=== PATIENT | female | born 1970 | race Caucasian/White ===

== ENCOUNTER 2017-02-17 06:25 | Inpatient (IN) | payer SELFPAY ==
[2017-02-12 11:10] VITALS: BMI 22.2
[~2017-02-17 06:25] MED LIST: BUPIVACAINE HCL/PF 0.25% (2.5MG/ML) 10 ML VIAL IJ ONE
[2017-02-17] MEDS ORDERED: LIDOCAINE HCL 1%, 10 MG/ML (20ML VIAL) ONE ×4 (07:20→10:24)
[2017-02-17] MEDS ORDERED: ePHEDrine SULFATE 50 MG/1 ML AMPULE ONE (07:20)
[2017-02-17] MEDS ORDERED: EPINEPHrine 1:1,000 1 MG/1 ML - 30ML VIAL (INJECTION) ONE (07:20)
[2017-02-17] MEDS ORDERED: SUCCINYLCHOLINE CHLORIDE 200 MG/10 ML VIAL ONE (07:21)
[2017-02-17] MEDS ORDERED: ROCURONIUM BROMIDE 50 MG/5 ML VIAL ONE ×3 (07:21→12:30)
[2017-02-17] MEDS ORDERED: MIDAZOLAM HCL 2 MG/2 ML SINGLE DOSE VIAL ONE ×2 (07:21)
[2017-02-17] MEDS ORDERED: PROPOFOL 20 ML ONE ×2 (07:21)
[2017-02-17] MEDS ORDERED: DESFLURANE GAS 240 ML BOTTLE IH ONE (07:28)
[2017-02-17] MEDS ORDERED: ACETAMINOPHEN INJECTION 100 ML IVPB ONE (07:28)
[2017-02-17] MEDS ORDERED: SCOPOLAMINE HYDROBROMIDE 1 PATCH PATCH.TD72 ONE (07:28)
[2017-02-17] MEDS ORDERED: BUPIVACAINE HCL 0.25% 125 MG/50 ML VIAL ONE (07:34)
[2017-02-17] MEDS ORDERED: LIDOCAINE 1%/EPI 1:100000 (20 ML MULTI DOSE VIAL) ONE (07:34)
[2017-02-17] MEDS ORDERED: PROMETHAZINE HCL 25 MG/1 ML VIAL IVPUSH PRN (08:22)
[2017-02-17] MEDS ORDERED: ONDANSETRON 4 MG/2 ML VIAL IVPUSH PRN (08:22)
[2017-02-17] MEDS ORDERED: LACTATED RINGERS SOLUTION 1,000 ML IV SCH ×2 (08:30→19:15)
[2017-02-17] MEDS ORDERED: HEPARIN NA (PORCINE) 5,000 UNITS/ML 1ML VIAL ONE (09:03)
[2017-02-17] MEDS ORDERED: HEPARIN NA (PORCINE) 5,000 UNITS/ML 1ML VIAL SQ ONE (09:07)
[2017-02-17] MEDS ORDERED: ceFAZolin SODIUM 1 GM VIAL ONE (13:37)
[2017-02-17] MEDS ORDERED: HYDROmorphone HCL/PF 1 MG/ML VIAL (FOR PYXIS CHARGING ONLY) ONE ×3 (15:11)
[2017-02-17] MEDS ORDERED: LIDOCAINE 1%/EPI 1:100000 (20 ML MULTI DOSE VIAL) INF ONE (17:58)
[2017-02-17] MEDS ORDERED: BUPIVACAINE HCL/PF 0.25% (2.5MG/ML) 10 ML VIAL IJ ONE ×2 (18:07)
[2017-02-17] MEDS ORDERED: ZOLPIDEM TARTRATE 5 MG TABLET PO PRN (19:12)
[2017-02-17] MEDS ORDERED: oxyCODONE HCL 5 MG TABLET PO PRN ×2 (19:22→19:23)
[2017-02-17] MEDS: CEFAZOLIN 1 GM/D5W 50 ML IVPB SCH (21:49)
[2017-02-17] MEDS ORDERED: ENOXAPARIN NA (PORCINE) 40 MG/0.4 ML DISP.SYRIN SQ ONE (22:00)
[2017-02-17] MEDS: ONDANSETRON 4 MG/2 ML VIAL IVPB PRN (22:49)
[2017-02-17] MEDS: HYDROmorphone HCL CARPU-JECT 1 MG/1 ML DISP.SYRIN IVPB PRN (22:56)
[2017-02-18] MEDS: CEFAZOLIN 1 GM/D5W 50 ML IVPB SCH ×3 (03:18→15:05)
[2017-02-18] MEDS: DOCUSATE SODIUM 100 MG CAPSULE (FP) PO SCH ×3 (03:18→21:25)
[2017-02-18] MEDS: HYDROmorphone HCL CARPU-JECT 1 MG/1 ML DISP.SYRIN IVPB PRN ×4 (03:47→21:16)
[2017-02-18] MEDS: DOXYCYCLINE HYCLATE 100 MG CAPSULE PO SCH ×2 (09:44→18:28)
--- NOTE | 2017-02-18 12:07 | PN ---
Progress Note (short form) - Note Progress Note: ANESTHESIOLOGY POST-OP CHECK 46F s/p liposuction and bilateral mastopexy under general anesthesia, POD #1. No acute complaints. Pain 6/10 with pain meds and tolerable. Denies N/V, tolerating PO. Vital Signs Temperature 98.0 F 02/18/17 06:00 Pulse Rate 77 02/18/17 06:00 Respiratory Rate 18 02/18/17 06:00 Blood Pressure 90/46 02/18/17 06:00 O2 Sat by Pulse Oximetry (%) 97 02/18/17 11:32 Active Medications Acetaminophen (Tylenol -) 650 mg PO Q4H PRN PRN Reason: FEVER Diphenhydramine HCl (Benadryl Injection -) 25 mg IVPB Q4H PRN PRN Reason: FOR ITCHING Docusate Sodium (Colace -) 100 mg PO BID [facility] Last Admin: 02/18/17 09:46 Dose: 100 mg Doxycycline Hyclate (Vibramycin -) 100 mg PO BID@1000,1800 [facility] Last Admin: 02/18/17 09:44 Dose: 100 mg Hydromorphone HCl (Dilaudid Injection -) 1 mg IVPB Q4H PRN PRN Reason: PAIN Last Admin: 02/18/17 08:34 Dose: 1 mg Cefazolin Sodium (Ancef 1 Gm Premixed Ivpb -) 50 mls @ 100 mls/hr IVPB Q6H-IV ECHO Stop: 02/18/17 15:29 Last Admin: 02/18/17 09:46 Dose: 100 mls/hr Lactated Ringer's (Lactated Ringers Solution) 1,000 mls @ 100 mls/hr IV ASDIR [facility] Ondansetron HCl (Zofran Injection) 4 mg IVPB Q4H PRN PRN Reason: NAUSEA AND/OR VOMITING Last Admin: 02/17/17 22:49 Dose: 4 mg Oxycodone HCl (Roxicodone -) 5 mg PO Q4H PRN PRN Reason: MODERATE PAIN Oxycodone HCl (Roxicodone -) 10 mg PO Q4H PRN PRN Reason: SEVERE PAIN Zolpidem Tartrate (Ambien -) 5 mg PO HS PRN PRN Reason: INSOMNIA Gen: Awake, alert No apparent anesthesia complications, pain controlled. Continue management as per primary team.
[2017-02-18] MEDS: ACETAMINOPHEN 325 MG TABLET (FP) PO PRN (16:48)
[2017-02-18] MEDS ORDERED: ENOXAPARIN NA (PORCINE) 40 MG/0.4 ML DISP.SYRIN SQ ONE (22:00)
[2017-02-19] MEDS: CEFAZOLIN (PRE-DOCKED) 50 ML IVPB SCH ×3 (00:06→15:02)
[2017-02-19] MEDS: HYDROmorphone HCL CARPU-JECT 1 MG/1 ML DISP.SYRIN IVPB PRN ×3 (03:38→18:51)
[2017-02-19] MEDS: ACETAMINOPHEN 325 MG TABLET (FP) PO PRN ×2 (09:00→17:00)
[2017-02-19] MEDS: DOXYCYCLINE HYCLATE 100 MG CAPSULE PO SCH ×2 (09:55→18:52)
[2017-02-19] MEDS: DOCUSATE SODIUM 100 MG CAPSULE (FP) PO SCH ×2 (09:56→21:21)
[2017-02-19] MEDS: ONDANSETRON 4 MG/2 ML VIAL IVPB PRN (18:52)
[2017-02-19] MEDS ORDERED: ONDANSETRON 4 MG TABLET PO PRN (23:29)
[2017-02-19] MEDS ORDERED: ENOXAPARIN NA (PORCINE) 40 MG/0.4 ML DISP.SYRIN SQ ONE (23:30)
[2017-02-19] MEDS ORDERED: HYDROmorphone HCL 2 MG TABLET PO PRN (23:31)
[2017-02-20] MEDS: CEPHALEXIN MONOHYDRATE 500 MG CAPSULE (UD) PO SCH ×2 (00:03→06:20)
[2017-02-20] MEDS: ACETAMINOPHEN 325 MG TABLET (FP) PO PRN (02:24)
[2017-02-20] MEDS: DOXYCYCLINE HYCLATE 100 MG CAPSULE PO SCH (09:21)
[2017-02-20] MEDS: DOCUSATE SODIUM 100 MG CAPSULE (FP) PO SCH (09:21)
[2017-02-20] MEDS ORDERED: PROCHLORPERAZINE MALEATE 5 MG TABLET PO PRN (09:43)
[2017-02-20 14:57] VITALS: BP 108/60; PULSE 93; TEMP 98.5
--- NOTE | 2017-02-20 16:26 | PATH ---
Surgical Pathology Report Patient Name: RUMA BORJAS Med. Rec. #: [id number] /Age/Gender: 1970 (Age: 46) / F Account: [id number] Location: [facility] Taken: 02/17/2017 Received: 02/17/2017 Reported: 02/20/2017 Physicians: Becki Muñoz M.D. Specimen(s) Received A: LEFT BREAST SKIN AND TISSUE B: RIGHT BREAST SKIN AND TISSUE Clinical History Cosmetic Final Diagnosis A. SKIN AND SOFT TISSUE, LEFT BREAST, EXCISION: UNREMARKABLE SKIN WITH ATTACHED DERMAL TISSUE. B. SKIN AND TISSUE, RIGHT BREAST, EXCISION: BENIGN BREAST TISSUE WITH FIBROCYSTIC CHANGES INCLUDING USUAL DUCTAL HYPERPLASIA (UDH), STROMAL FIBROSIS, AND DUCTAL DILATATION. UNREMARKABLE SKIN PRESENT. Electronically Signed Zcah Yi M.D. Gross Description A. Received in formalin labeled "left breast skin and tissue," is an 8 g, 8.0 x 4.0 x 0.2 cm aggregate of cullen, irregular skin shaves. No discrete lesions are identified. Deaf/Hard Of Hearing Specialist sections are submitted in one cassette. B. Received in formalin labeled "right breast skin and tissue," is a 9 g, 5.5 x 5.0 x 0.3 cm aggregate of 2 cullen, irregular, unoriented skin shaves as well as a portion of fibroadipose tissue. The epidermal surfaces are unremarkable. Sectioning of the fibroadipose tissue reveals dense white fibrous tissue. No definitive masses are identified. Deaf/Hard Of Hearing Specialist sections are submitted in one cassette. /02/18/201702/18/2017
== END 2017-02-20 15:30 | disposition home or self-care (01) | DRG 363 ==
LOC: FASU 06:25 → FM/S 19:12 → FASU 20:51 → FM/S 20:51
PROVIDERS: ADMIT Surgery; ATTEND Surgery
PROC: 0J0M3ZZ Alteration of Left Upper Leg Subcutaneous Tissue and Fascia, Percutaneous Approach (ICD-10-PCS; 2017-02-17)
PROC: 0J0L3ZZ Alteration of Right Upper Leg Subcutaneous Tissue and Fascia, Percutaneous Approach (ICD-10-PCS; 2017-02-17)
PROC: 0J083ZZ Alteration of Abdomen Subcutaneous Tissue and Fascia, Percutaneous Approach (ICD-10-PCS; 2017-02-17)
PROC: 0H0V0ZZ Alteration of Bilateral Breast, Open Approach (ICD-10-PCS; principal; 2017-02-17 10:13)
PROC: 0JDN3ZZ Extraction of Right Lower Leg Subcutaneous Tissue and Fascia, Percutaneous Approach (ICD-10-PCS; 2017-02-17 10:13)
DX: Z41.1 Encounter for cosmetic surgery (principal)
CPT/HCPCS: 84703; 88302-TC; 94010; 94760; J1644